=== PATIENT | female | born 1965 | race Caucasian/White ===

== ENCOUNTER → 2025-06-01 11:05 | Outpatient (BNVA) | payer BC, SELFPAY | PROVIDERS: Referring Provider Internal Medicine Infectious Disease; Visit Provider Internal Medicine Rheumatology | DX: M81.0 Age-related osteoporosis without current pathological fracture (principal); I77.6 Arteritis, unspecified | CPT/HCPCS: 36415; 80076; 82306; 82565; 85025; 85651; 86021; 86036; 86140; 86160; 86162; 86200; 86235; 86255; 86376; 86431; 86704; 86803; 87340 ==